=== PATIENT | female | born 1930 | race African-American/Black ===

== ENCOUNTER 2020-01-07 22:33 | Emergency (ER) | payer OTHER ==
[~2020-01-07] VITALS: Ht 160 cm; Wt 50.0 kg
[~2020-01-07 22:33] MED LIST: ASPI-1497 PO
[2020-01-07] MEDS ORDERED: SODIUM CHLORIDE 0.9% 1,000 ML IV ONE (23:02)
[2020-01-08 00:23] LABS: BASOPHILS % 0.6 % (0.0-2.0); EOSINOPHILS % 2.3 % (0.0-5.0); HEMATOCRIT. 35.4 % (36.0-48.0); HEMOGLOBIN. 11.8 g/dL (12.0-16.0); LYMPHOCYTES % 20.3 % (20.0-50.0); MEAN CORPUSCULAR HEMOGLOBIN 25.5 pg (28.0-32.0); MEAN CORPUSCULAR VOLUME 76.2 fL (81.0-99.0); MEAN PLATELET VOLUME 9.9 fl (7.4-10.4); MONOCYTES % 6.6 % (2.0-8.0); NEUTROPHILS % 70.2 % (40.0-76.0); PLATELET 169 x1000/uL (130-400); RED BLOOD CELL COUNT 4.64 mill/uL (4.2-5.4)
[2020-01-08 00:28] LABS: CHLORIDE 104 mEq/L (98-107)
[2020-01-08 02:14] VITALS: BP 194/73
== END 2020-01-08 02:45 | disposition short-term general hospital (02) ==
LOC: ER 22:33 → CANBEDREQ 01-08 08:31
DX: R55 Syncope and collapse (principal); I11.0 Hypertensive heart disease with heart failure; I50.9 Heart failure, unspecified; F03.90 Unspecified dementia, unspecified severity, without behavioral disturbance, psychotic disturbance, mood disturbance, and anxiety; Z96.643 Presence of artificial hip joint, bilateral; Z79.82 Long term (current) use of aspirin
CPT/HCPCS: 36415; 70450; 71045; 80053; 84484; 85025; 93005; 96360; 96361; 99285; J7030